=== PATIENT | female | born 1960 | race African-American/Black ===

== ENCOUNTER 2017-09-25 07:27 | Emergency (ER) | payer MEDICAID, OTHER ==
[~2017-09-25] VITALS: Ht 162.6 cm; Wt 80.0 kg
[~2017-09-25 07:27] MED LIST: CALA240T PO; FLUO20 PO; IBUP600 PO; TRAZ100 PO; TUSSSUS PO; VENTAER INH; VERA80TA PO
[2017-09-25 07:35] VITALS: BP 184/89; PULSE 96; RESP 16; TEMP 98.8; O2SAT 99
[2017-09-25] MEDS ORDERED: TRAZ100T10 PO (07:50)
[2017-09-25] MEDS ORDERED: GABA100C4 PO (07:55)
[2017-09-25] MEDS ORDERED: VALT1TAB PO (07:55)
[2017-09-25] MEDS ORDERED: HYDR-3516 PO (07:55)
--- NOTE | 2017-09-25 08:09 | PD ---
HPI Chief Complaint: Injury Time Seen by Provider: 07:45 Travel History International Travel<30 days: No Contact w/Intl Traveler<30days: No Traveled to known affect area: No History of Present Illness HPI 57-year-old -[place] female presents emergency department with several day history of left anterior chest and arm pain and numbness, with the pain she describes as 10 out of 10 with burning, without history of injury. Patient denies fever or chills. Patient does admit to a rash which developed at the same time first in the anterior central chest, and now with an area on the left arm. She denies weakness. She denies shortness of breath or cough. Patient has no other significant history. She has no known drug allergies. PFSH Past Medical History Anemia: Yes Arthritis: Yes Anxiety: Yes Depression: Yes Cardiovascular Problems: Yes High Cholesterol: Yes Gastrointestinal Disorders: Yes GERD: Yes Headaches: Yes Hypertension: Yes Musculoskeletal: Yes Psychiatric: Yes ?: Not Past Surgical History Other Surgery: Yes (LEFT WRIST GANGLION CYST) Family History Family Hypercholesterolemia: Yes Social History Alcohol Use: No Tobacco Use: No Substance Use: No Allergies-Medications (Allergen,Severity, Reaction): Coded Allergies: No Known Allergies (Verified , 10/14/12) Reported Meds & Prescriptions Reported Meds & Active Scripts Active Hydrocodone-Acetaminophen 5-325 mg Tab 1 Tab PO Q6H PRN Gabapentin 100 Mg Cap 100 Mg PO TID Valtrex (Valacyclovir HCl) 1,000 Mg Tab 1,000 Mg PO TID 7 Days Reported Trazodone (Trazodone HCl) 100 Mg Tablet 100 Mg PO HS Review of Systems Except as stated in HPI: all other systems reviewed are Neg General / Constitutional: No: Fever Eyes: No: Visual changes HENT: No: Headaches Cardiovascular: No: Chest Pain or Discomfort Respiratory: No: Shortness of Breath Gastrointestinal: No: Abdominal Pain Genitourinary: No: Dysuria Musculoskeletal: Positive: Myalgias, Pain Skin: Positive Rash Neurologic: No: Weakness Psychiatric: No: Depression Endocrine: No: Polydipsia Hematologic/Lymphatic: No: Easy Bruising Physical Exam Narrative GENERAL: Patient appears in mild to moderate distress. SKIN: Warm and dry. Normal color. Normal turgor. Patient has a splotchy vesicular rash to the anterior left middle chest, with one area on the left lateral proximal forearm, consistent with shingles HEAD: Atraumatic. Normocephalic. EYES: Pupils equal and round. No scleral icterus. No injection or drainage. ENT: No nasal bleeding or discharge. Mucous membranes pink and moist. Pharynx is clear. Airways patent. NECK: Trachea midline. Supple and nontender without significant lymphadenopathy CARDIOVASCULAR: Regular rate and rhythm. RESPIRATORY: No accessory muscle use. Clear to auscultation. Breath sounds equal bilaterally. GASTROINTESTINAL: Abdomen soft, non-tender, nondistended. Hepatic and splenic margins not palpable. MUSCULOSKELETAL: Extremities without clubbing, cyanosis, or edema. No obvious deformities. Full range of motion and strength. NEUROLOGICAL: Awake and alert. No obvious cranial nerve deficits. Motor grossly within normal limits. Five out of 5 muscle strength in the arms and legs. Normal speech. PSYCHIATRIC: Appropriate mood and affect; insight and judgment normal. Data Data Last Documented VS Vital Signs Date Time Temp Pulse Resp B/P (MAP) Pulse Ox O2 Delivery O2 Flow Rate FiO2 09/25/17 07:51 18 99 Room Air 09/25/17 07:35 98.8 96 184/89 (120) MDM Medical Decision Making Medical Screen Exam Complete: Yes Emergency Medical Condition: Yes Differential Diagnosis Left arm pain. Shingles. Neuropathy Narrative Course Patient is medically stable at time of exam. Patient will be treated with valacyclovir 1000 mg 3 times daily for 7 days. Patient started on gabapentin 100 mg 3 times daily #90 Patient given Lortab 5/325 one every 6 hours as needed pain #12. Work note is given. Patient can use topical Caladryl to the rash Patient to follow-up as needed Diagnosis Primary Impression: Shingles outbreak Qualified Codes: B02.9 - Zoster without complications Additional Impression: Neuropathy Patient Instructions: General Instructions, Shingles (ED) Departure Forms: Work Release Enter return to work date: Sep 28, 2017 Additional Instructions: Patient will be treated with valacyclovir 1000 mg 3 times daily for 7 days. Patient started on gabapentin 100 mg 3 times daily #90 Patient given Lortab 5/325 one every 6 hours as needed pain #12. Work note is given. Patient can use topical Caladryl to the rash Patient to follow-up as needed Med/Other Pt SpecificInfo: Prescription(s) given Scripts Hydrocodone-Acetaminophen (Hydrocodone-Acetaminophen) 5-325 mg Tab 1 TAB PO Q6H Y for PAIN, #12 TAB 0 Refills Prov: Vasquez Ruiz MD 09/25/17 Gabapentin (Gabapentin) 100 Mg Cap 100 MG PO TID, #90 CAP 0 Refills Prov: Vasqeuz Ruiz MD 09/25/17 Valacyclovir (Valtrex) 1,000 Mg Tab 1000 MG PO TID for Mgmt Viral Infection for 7 Days, #21 TAB 0 Refills Prov: Vasquez Ruiz MD 09/25/17 Disposition: 01 DISCHARGE HOME Condition: Stable Fredo Oconnell Sep 25, 2017 08:09
== END 2017-09-25 08:37 | disposition home or self-care (01) ==
LOC: NEPD 07:27
DX: B02.9 Zoster without complications (principal); G62.9 Polyneuropathy, unspecified
CPT/HCPCS: 99283